=== PATIENT | male | born 1995 | race Caucasian/White ===

== ENCOUNTER → 2021-06-19 08:54 | Outpatient (BNVA) | payer BC, SELFPAY | PROVIDERS: PCP Registered Nurse; Visit Provider Registered Nurse | DX: I10 Essential (primary) hypertension (principal); E78.5 Hyperlipidemia, unspecified | CPT/HCPCS: 80053; 80061; 85025 ==

== ENCOUNTER 2022-01-20 20:00 | Outpatient (CLI) | payer BC, SELFPAY | END 2022-01-20 20:01 | disposition home or self-care (01) | LOC: SLEEP 01-21 06:08 | PROVIDERS: PCP Registered Nurse; Visit Provider Registered Nurse | DX: G47.33 Obstructive sleep apnea (adult) (pediatric) (principal) | CPT/HCPCS: 95810 ==

== ENCOUNTER 2022-02-22 20:00 | Outpatient (CLI) | payer BC, SELFPAY | END 2022-02-22 20:01 | disposition home or self-care (01) | LOC: SLEEP 02-23 05:58 | PROVIDERS: PCP Registered Nurse; Visit Provider Registered Nurse | DX: G47.33 Obstructive sleep apnea (adult) (pediatric) (principal) | CPT/HCPCS: 95811 ==

== ENCOUNTER 2022-08-12 00:39 | Emergency (ER) | payer BC, SELFPAY ==
[2022-08-12 01:00] VITALS: BP 164/124; PULSE 81; RESP 18; TEMP 36.6; O2SAT 97; BMI 42.0
--- NOTE | 2022-08-12 01:09 | XRR_ITS ---
PROCEDURE INFORMATION: Exam: XR Chest Exam date and time: 08/12/2022 2:21 AM Age: 27 years old Clinical indication: Pain; Chest pressure; Patient HX: C/O chest discomfort with hypertension; Additional info: Cp TECHNIQUE: Imaging protocol: Radiologic exam of the chest. Views: 1 view. COMPARISON: No relevant prior studies available. FINDINGS: Lungs: Unremarkable. No consolidation. Pleural spaces: Unremarkable. No pleural effusion. No pneumothorax. Heart/Mediastinum: Unremarkable. No cardiomegaly. Bones/joints: Unremarkable. XR/XR chest 1V portable [id number] IMPRESSION: No acute findings.
--- NOTE | 2022-08-12 01:09 | ECG_ITS ---
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 Measurements Intervals [place] Rate: 68 P: -53 NC: 133 QRS: -15 QRSD: 102 T: 38 QT: 363 QTc: 387 Interpretive Statements SINUS RHYTHM WITH OCCASIONAL SUPRAVENTRICULAR PREMATURE COMPLEXES No previous ECG available for comparison Electronically Signed On 08-12-2022 15:02:03 CENTRAL SCHEDULER by Mane Le M.D. [email or web address]
--- NOTE | 2022-08-12 01:22 | ED_ITS ---
HPI - Chest Pain General: Chief Complaint: Chest Pain Stated Complaint: high B/P Time Seen by Provider: 08/12/22 00:45 Source: patient Mode of arrival: ambulatory Limitations: no limitations History of Present Illness: 27-year-old male who states he has a history of hypertension he states he takes 20 mg lisinopril in the morning he states over the last 2 days he has had some sharp pains like needles in his chest he did notice his blood pressures been running high its been running anywhere to 1 5160 he denies any vomiting denies any pain currently denies any shortness of breath states he feels at his baseline. Associated symptoms: Deny abdominal pain, dyspnea, fever(s), nausea or vomiting Review of Systems Const: Denies: fever(s), chills, body aches or change in appetite Eyes: Denies: blurry vision or eye discomfort ENMT: Denies: throat pain or dental pain Card: Reports: chest pain Resp: Denies: dyspnea GI: Denies: abdominal pain, nausea, vomiting or diarrhea : Denies: dysuria Musc: Denies: neck pain or back pain Skin/Breast: Denies: rash Neuro: Denies: headache(s) Psych: Denies: depression Marcell/Lymph: Denies: easy bruising All/Imm: Denies: urticaria PFSH ED PFSH: Medical History Bronchitis Depression Hypertension URI (upper respiratory infection) Surgical History History of hernia repair Family History Father Hypertension Grandmother Diabetes Social History Smoking and tobacco status: never smoked Alcohol intake: current Alcohol intake frequency: few times a month Adopted: No Caregiver/support person: No Lives independently: No Household members: spouse Marital status: Current occupational status: employed Sexually active: Yes Current gender identity: Male Physical Exam Const: COMMON NORMALS: no acute distress, patient oriented x3 and healthy appearing HENMT: COMMON NORMALS: normocephalic and atraumatic HEAD & SCALP: normocephalic and atraumatic Eye: COMMON NORMALS: Equal, round and reactive pupils present and EOMs intact bilaterally PUPIL: Yes Equal, round and reactive pupils present Neck/C-Spine: COMMON NORMALS: full ROM and supple Chest: COMMONS NORMALS: normal inspection of the chest and normal palpation of entire chest wall Resp: COMMON NORMALS: normal respiratory effort, No retractions, No use of accessory muscles and clear to auscultation bilaterally AUSCULTATION: clear to auscultation bilaterally Cardio: COMMON NORMALS: regular rate, regular rhythm and No murmurs present (Cardio) RATE: regular rate RHYTHM: regular rhythm GI: COMMON NORMALS: Normal to inspection, nondistended, normoactive bowel sounds present, Soft to palpation, non-tender and no masses PALPATION: Yes Soft to palpation Extremity: COMMON NORMALS: normal to inspection and full ROM Neuro: COMMON NORMALS: patient oriented x3, moves all extremities and no focal motor deficits Psych: COMMON NORMALS: mental status grossly normal, Normal thought process present and cooperative THOUGHT PROCESS: Normal thought process present Skin: COMMON NORMALS: no rashes or lesions noted and no wounds GENERAL SKIN EXAM: no rashes or lesions noted Course Vital Signs: Vital signs: Vital Signs Temperature 97.9 F 08/12/22 01:00 Pulse Rate 81 08/12/22 01:00 Respiratory Rate 18 08/12/22 01:00 Blood Pressure 164/124 08/12/22 01:00 Pulse Oximetry 97 08/12/22 01:00 MDM - Chest Pain Medical Decision Making Patient presents with hypertension he is asymptomatic blood work here is all normal we will place him on metoprolol he is stable for discharge he is to fol low-up his PCP and return if worsening he understands agrees to plan. Lab Data : 08/12/22 01:17 08/12/22 01:17 Laboratory Results WBC 9.3 10^3/uL (4.0-10.0) 08/12/22 01:17 RBC 5.86 10^6/uL (4.1-5.3) H 08/12/22 01:17 Hgb 15.6 g/dL (11.7-16.6) 08/12/22 01:17 Hct 48.3 % (42.0-52.0) 08/12/22 01:17 MCV 82.4 fl (80-94) 08/12/22 01:17 MCH 26.6 pg (28.0-34.0) L 08/12/22 01:17 MCHC 32.3 g/dL (30.0-36.0) 08/12/22 01:17 RDW 13.0 % (12.1-15.1) 08/12/22 01:17 Plt Count 208 10^3/cmm (130-400) 08/12/22 01:17 MPV 10.1 fL (7.4-10.4) 08/12/22 01:17 Neut % (Auto) 56.2 % 08/12/22 01:17 Lymph % (Auto) 31.6 % 08/12/22 01:17 [place] % (Auto) 7.9 % 08/12/22 01:17 Eos % (Auto) 3.1 % 08/12/22 01:17 Baso % (Auto) 0.8 % 08/12/22 01:17 Neut # (Auto) 5.20 10^3/uL (1.8-7.7) 08/12/22 01:17 Lymph # (Auto) 2.9 10^3/uL (0.8-4.8) 08/12/22 01:17 [place] # (Auto) 0.7 10^3/uL (0.2-0.9) 08/12/22 01:17 Eos # (Auto) 0.3 10^3/uL (0.0-0.8) 08/12/22 01:17 Baso # (Auto) 0.1 10^3/uL (0.0-0.1) 08/12/22 01:17 Nucleated RBC % (auto) 0 % 08/12/22 01:17 Nucleated RBCs # 0.0 /100WBC 08/12/22 01:17 Sodium 138 mmol/L (136-145) 08/12/22 01:17 Potassium 4.2 mmol/L (3.5-5.1) 08/12/22 01:17 Chloride 99 mmol/L (98-107) 08/12/22 01:17 Carbon Dioxide 29 mmol/L (22-29) 08/12/22 01:17 Anion Gap 14.2 (5-19) 08/12/22 01:17 BUN 11 mg/dL (6-20) 08/12/22 01:17 Creatinine 0.7 mg/dL (0.7-1.2) 08/12/22 01:17 GFR Calculation 133.3 mL/min (90-130) H 08/12/22 01:17 Glucose 105 mg/dL (65-115) 08/12/22 01:17 Calculated Osmolality 286 mOsm/kg (285-295) 08/12/22 01:17 Calcium 9.8 mg/dL (8.5-10.5) 08/12/22 01:17 Total Bilirubin 0.6 mg/dL (0.15-1.2) 08/12/22 01:17 AST 24 U/L (0-40) 08/12/22 01:17 ALT 32 U/L (0-41) 08/12/22 01:17 Alkaline Phosphatase 75 U/L (40-130) 08/12/22 01:17 Troponin T Baseline 10 ng/L (0-15) 08/12/22 01:17 Total Protein 7.6 g/dL (6.6-8.7) 08/12/22 01:17 Albumin 4.8 g/dL (3.5-5.2) 08/12/22 01:17 Globulin 2.8 g/dL (1.3-4.6) 08/12/22 01:17 EKG Data EKG 1: I personally reviewed and interpreted this EKG as follows: EKG interpretation date: 08/12/22 EKG interpretation time: 01:10 Interpretation: nsr hr [address] or t wave abnormalities qrs 102 qtc 380 Discharge Plan Discharge Patient Disposition: Home Clinical Impression: Hypertension Condition: Stable Prescriptions: New metoprolol succinate 25 mg tablet extended release 24 hr 25 mg PO DAILY Qty: 30 0RF No Action ibuprofen 800 mg tablet 800 mg PO BID 7 Days Qty: 14 0RF sertraline [Zoloft] 25 mg tablet 25 mg PO DAILY 90 Days Qty: 90 3RF baclofen 20 mg tablet 20 mg PO DAILY 30 Days Qty: 30 0RF triamcinolone acetonide 0.05 % ointment 1 applic topical BID Qty: 110 0RF fluticasone propionate [Flonase Allergy Relief] 50 mcg/actuation spray,suspension 1 spray intranasal BID Qty: 16 0RF Rx Instructions: administer into each nostril pantoprazole 40 mg tablet,delayed release (DR/EC) 40 mg PO DAILY 30 Days Qty: 30 0RF furosemide [Lasix] 20 mg tablet 20 mg PO DAILY 30 Days Qty: 30 0RF lisinopril 20 mg tablet 20 mg PO DAILY 90 Days Qty: 90 0RF (DME) cpap and supplies See Rx Instructions .Route .MEDSUPPLY Qty: 1 0RF Rx Instructions: As directed updated order due to change in insurance. Discharge Orders: Discharge ED (Routine); Ordered 08/12/22 Ordered By: Robert Milian Referrals: Asaf Yung, [facility] [Primary Care Provider] - 1-3 days Discharge Diet: Advance as tolerated Discharge Activity: Resume usual activity Patient Instructions: Hypertension (ED) Coding Level of Care Code ED Finisher Hand for Nataliag Fwd Exam Comprehensive
[2022-08-12] MEDS: labetalol 5 mg/mL SDV 20mL 10 MG IVP (01:24)
[2022-08-12 01:28] LABS: Basophils # 0.1 10^3/uL (0.0-0.1); Basophils % 0.8 %; Eosinophils # 0.3 10^3/uL (0.0-0.8); Eosinophils % 3.1 %; Hematocrit 48.3 % (42.0-52.0); Hemoglobin 15.6 g/dL (11.7-16.6); Lymphocytes # 2.9 10^3/uL (0.8-4.8); Lymphocytes % 31.6 %; Mean Corpuscular HGB Conc 32.3 g/dL (30.0-36.0); Mean Corpuscular Hemoglobin 26.6 pg (28.0-34.0); Mean Corpuscular Volume 82.4 fl (80-94); Mean Platelet Volume 10.1 fL (7.4-10.4); Monocytes # 0.7 10^3/uL (0.2-0.9); Monocytes % 7.9 %; Neutrophils % 56.2 %; Nucleated Red Blood Cells % 0 %; Platelet Count 208 10^3/cmm (130-400); Red Blood Count 5.86 10^6/uL (4.1-5.3); White Blood Count 9.3 10^3/uL (4.0-10.0)
[2022-08-12 01:47] LABS: Troponin(5th) Baseline 10 ng/L (0-15)
[2022-08-12 01:48] LABS: Alanine Aminotransferase 32 U/L (0-41); Albumin Level 4.8 g/dL (3.5-5.2); Alkaline Phosphatase 75 U/L (40-130); Aspartate Amino Transferase 24 U/L (0-40); Blood Urea Nitrogen 11 mg/dL (6-20); Calcium 9.8 mg/dL (8.5-10.5); Carbon Dioxide 29 mmol/L (22-29); Chloride 99 mmol/L (98-107); Globulin 2.8 g/dL (1.3-4.6); Glomerular Filtration Rate 133.3 mL/min (90-130); Glucose 105 mg/dL (65-115); Osmolality Calculated 286 mOsm/kg (285-295); Sodium 138 mmol/L (136-145); Total Bilirubin 0.6 mg/dL (0.15-1.2); Total Protein 7.6 g/dL (6.6-8.7)
[2022-08-12 01:50] LABS: Anion Gap 14.2 (5-19)
[2022-08-12 01:51] LABS: Potassium 4.2 mmol/L (3.5-5.1)
[2022-08-12 01:55] VITALS: BP 140/98; PULSE 70; RESP 14; O2SAT 96
== END 2022-08-12 02:03 | disposition home or self-care (01) ==
PROVIDERS: Emergency Provider Emergency Medicine; PCP Registered Nurse
DX: I10 Essential (primary) hypertension (principal)
CPT/HCPCS: 71045; 80053; 84484; 85025; 93005; 96374; 99285; J3490

== ENCOUNTER 2022-08-16 06:41 | Outpatient (CLI) | payer BC, SELFPAY ==
--- NOTE | 2022-08-16 07:15 | US_ITS ---
WS: [id number] RIGHT UPPER QUADRANT ULTRASOUND HISTORY: R10.11 - Right upper quadrant pain COMPARISON: None available. Liver: 20.5 cm in length. Moderately enlarged liver with coarse echotexture and hepatic steatosis. No mass or bile duct dilatation. Portal Vein: Limited. Gallbladder: Normally distended gallbladder with no stones or wall thickening. CBD: 0.5 cm Pancreas: Poorly visualized due to body habitus. Right kidney: 11.9 cm in length. Normal size and echogenicity. No hydronephrosis or mass. Aorta and IVC: Unremarkable abdominal aorta and IVC. No ascites. US/US gall bladder [id number] IMPRESSION: 1. Normal gallbladder. 2. Moderate hepatomegaly and hepatic steatosis.
== END 2022-08-16 06:42 | disposition home or self-care (01) ==
LOC: RAD 06:42
PROVIDERS: PCP Registered Nurse; Visit Provider Registered Nurse
DX: R10.11 Right upper quadrant pain (principal); R16.0 Hepatomegaly, not elsewhere classified; K76.0 Fatty (change of) liver, not elsewhere classified
CPT/HCPCS: 76705

== ENCOUNTER 2022-09-10 07:25 | Outpatient (CLI) | payer BC, SELFPAY ==
--- NOTE | 2022-09-10 07:41 | XR_ITS ---
WS: [id number] Left ankle, 3 views, 09/10/2022 Clinical Data: M25.572 - Pain in left ankle and joints of left foot Comparison: None. Findings: No fractures or dislocations are seen. The ankle mortise is normal. The talus and calcaneus are unrem arkable. No soft tissue swelling over the medial or lateral malleolus is seen. There is a small Achilles spur. XR/XR ankle LT min 3V* [id number] Impression: Negative left ankle.
== END 2022-09-10 07:26 | disposition home or self-care (01) ==
LOC: RAD 07:26
PROVIDERS: PCP Registered Nurse; Visit Provider Registered Nurse
DX: M25.572 Pain in left ankle and joints of left foot (principal)
CPT/HCPCS: 73610

== ENCOUNTER → 2022-11-26 08:04 | Outpatient (BNVA) | payer BC, SELFPAY | PROVIDERS: PCP Registered Nurse; Visit Provider Podiatrist Foot & Ankle Surgery | DX: M95.8 Other specified acquired deformities of musculoskeletal system (principal); M77.52 Other enthesopathy of left foot and ankle; M21.41 Flat foot [pes planus] (acquired), right foot; M21.42 Flat foot [pes planus] (acquired), left foot; M25.872 Other specified joint disorders, left ankle and foot | CPT/HCPCS: 73610 ==

== ENCOUNTER 2022-12-20 10:30 | Outpatient (CLI) | payer BC, SELFPAY ==
--- NOTE | 2022-12-20 11:00 | MR_ITS ---
WS: [email or web address] EXAMINATION: MR ankle LT wo con* [id number] ORDER DATE: 12/20/2022 10:59 AM COMPARISON: Radiograph November 26, 2022 HISTORY: Left ankle Osteochondral defect CONTRAST: None. TECHNIQUE: Axial proton density fat sat, axial T1, sagittal proton density, sagittal STIR, coronal T2 fat sat, and coronal T1 sequences performed. After contrast, axial T1 fat sat, coronal T1 fat sat, and sagittal T1 fat sat were performed. FINDINGS: Tiny osteochondral defect along the lateral dome of the talus. No underlying edema. No other osteocho ndral defects. Normal medial and lateral malleolus. No acute fractures. Otherwise normal talar dome. Normal ATF. Achilles tendon is normal in appearance. Normal peroneal tendons. Pes planus. Normal extensor and flexor compartment tendons. Normal plantar aponeurosis. Normal talonavicular articulation. Normal deltoid ligament. Normal cuboid. Normal navicular. Normal cuneiforms. Degenerative arthritis talonavicular and talocalc aneal articulations. MR/MR ankle LT wo con* [id number] IMPRESSION: 1. Tiny osteochondral defect along the lateral dome of the talus. No underlyin g edema. 2. Normal medial and lateral malleolus. No avulsion fractures. 3. Normal peroneal tendons. Normal extensor and flexor compartment tendons. 4. Normal Achilles tendon. 5. Mild degenerative arthritis talonavicular and talocalcaneal articulations. Tiny joint effusion. 6. Normal ATF.
== END 2022-12-20 10:31 | disposition home or self-care (01) ==
LOC: RAD 10:31
PROVIDERS: PCP Registered Nurse; Visit Provider Podiatrist Foot & Ankle Surgery
DX: M95.8 Other specified acquired deformities of musculoskeletal system (principal); M19.072 Primary osteoarthritis, left ankle and foot; M25.472 Effusion, left ankle
CPT/HCPCS: 73721

== ENCOUNTER 2022-12-30 07:21 | Day surgery (SDC) | payer BC, SELFPAY ==
[2022-12-29 15:55] VITALS: BMI 42.8
[2022-12-30] VITALS (13 sets, daily range): BP systolic 121–145; BP diastolic 60–104; PULSE 62–81; RESP 11–21; TEMP 36.3–36.9; O2SAT 93–100
[2022-12-30] MEDS: acetaminophen 1,000 MG/100 ML PIGGYBACK 400 MG IV (07:56)
[2022-12-30] MEDS: gabapentin 300 mg Capsule PO (07:56)
[2022-12-30] MEDS: sodium chloride 0.9% 1,000 ML 30 ML IV (07:57)
--- NOTE | 2022-12-30 08:03 | ANES.PREANE2 ---
Pre-Anesthetic Assessment Height/Weight: Height 1.75 m Weight 131.542 kg Temp Pulse Resp BP Pulse Ox O2 Del Method 98.4 F 78 16 137/99 97 12/30/22 07:26 12/30/22 07:55 12/30/22 07:55 12/30/22 07:55 12/30/22 07:55 12/30/22 07:55 Preop Diagnosis: Left ankle osteochondral defect Operation Date: 12/30/22 09:10 Proposed Procedures p ?Left ankle arthroscopy with OCD repair 84321,M93.272(Not Applicable) - Simba Bagley DPM Familial anesthetic complications: None Was Beta Angélica taken within 24 hours: N/A Was Clonidine taken within 24 hours: N/A Last intake: Intake Last Liquid Date 12/29/22 Last Liquid Time 17:30 Last Solid Date 12/29/22 Last Solid Time 17:30 Social Alcohol (Social) and No tobacco Exam alert, oriented x 3, clear to auscultation bilaterally and regular rate & rhythm Airway Submandibular: within normal limits Cervical ROM: within normal limits Mallampati: Class III Dentition: full History/ROS No significant history except as noted and No significant complaints Pulmonary Sleep Apnea CV/HEM Hypertension None reported Hepatic None reported GI None reported Metabolic Morbid Obesity Musc/skel None reported Neuropsych Anxiety Anesthetic Plan ASA status: 2 Anesthesia: Anesthesia Evaluation, Eval. for regional block (Pop block) and General Risk of > 500 ml blood loss (7ml/kg in children): No Medications/Allergies Home Medications Medication Instructions Recorded Confirmed Last Taken Type sertraline 25 mg tablet (Zoloft) 25 mg PO DAILY 90 days #90 tabs 01/15/22 12/29/22 12/29/22 Rx cpap and supplies #1 ea 06/14/22 12/29/22 Unknown Rx ASO brace #1 ea 11/26/22 12/29/22 Unknown Rx crutches #1 ea 12/22/22 12/29/22 Unknown Rx amlodipine 5 mg tablet 5 mg PO DAILY 30 days #30 tabs 12/23/22 12/29/22 12/29/22 Rx baclofen 20 mg tablet 20 mg PO DAILY PRN muscle relaxer 12/29/22 12/30/22 12/16/22 History meloxicam 15 mg tablet 15 mg PO DAILY 03/12/29/22 12/28/22 History hydrocodone 5 mg-acetaminophen 325 1 tab PO Q6H PRN pain 6 days #24 12/30/22 Unknown Rx mg tablet tabs Allergies Allergy/AdvReac Type Severity Reaction Status Date / Time No Known Allergies Allergy Verified 12/30/22 07:33 Current Medications Generic Name Dose Route Start Last Admin Trade Name Freq PRN Reason Stop Dose Admin Sodium Chloride 1,000 mls @ 30 mls/hr 12/30/22 07:30 12/30/22 07:57 Sodium Chloride 0.9% IV 12/31/22 07:29 30 mls/hr .Q24H ANTHONY Administration PFSH Anesthesia Medical History Bronchitis Depression Hypertension URI (upper respiratory infection) Surgical History History of hernia repair Family History Father Hypertension CAD (coronary artery disease) Heart attack Grandmother Diabetes CAD (coronary artery disease) Grandfather CAD (coronary artery disease) Brother CAD (coronary artery disease) Social History Smoking and tobacco status: never smoked Alcohol intake: current Alcohol intake frequency: few times a month Adopted: No Caregiver/support person: No Lives independently: No Household members: spouse Marital status: Current occupational status: employed Sexually active: Yes Current gender identity: Male Data Anesthesia Cardiac Studies: No Data to Display
--- NOTE | 2022-12-30 08:04 | W.PM.OPSUD ---
Surgery/Procedure H&P Update DATE OF PROCEDURE: December 30, 2022 DATE H&P PERFORMED: 12/22/22 CHANGES TO PREVIOUS DOCUMENTATION: No changes PREOP DIAGNOSIS: Left ankle osteochondral defect PLANNED PROCEDURE: Operation Date: 12/30/22 09:10 Proposed Procedures p ?Left ankle arthroscopy with OCD repair 67318,M93.272(Not Applicable) - Simba Bagley DPM
[2022-12-30] MEDS: ceFAZolin 2,000 MG in sodium chloride 0.9% (plus) 50 ML 100 MG IV (10:23)
[2022-12-30] MEDS: ceFAZolin 1,000 mg SDV 1000 MG IVP (11:15)
--- NOTE | 2022-12-30 11:26 | ANES.PROC ---
Anesthesia Procedures Procedure/Date: 12/30/22 Nerve Block ^: Nerve Block 1: Main Anesthesia: general anesthesia Time Out Performed: Yes Consent: requested by attending/covering physician, from patient, risks and benefits reviewed and patient agrees to proceed Nerve block location: popliteal (left) Anesthesia monitors applied: pulse oximetry, EKG, BP cuff and oxygen Nerve block position: supine Anesthetic Used: ropivicaine 0.5% Amount of anesthesia used (mL): 30 Ultrasound used to: recognize landmarks Nerve Stimulator Used?: No Interscalene/Femoral BLK: 4 stimuplex 21 g needle used for position and inplane approach Injection: neg aspiration of heme Patient Tolerated Procedure: well Complications: none
--- NOTE | 2022-12-30 13:06 | PC.NURSE ---
Awake. Airway removed
[2022-12-30] MEDS: HYDROcodone-acetaminophen 5-325 mg Tablet 1 TAB PO (13:39)
--- NOTE | 2022-12-30 15:59 | ANE.PACU2 ---
Inpatient post-anesthesia follow up: Airway intact: Yes Vital signs: Temperature 97.8 F Pulse Rate 81 Respiratory Rate 16 Blood Pressure 138/90 Pulse Oximetry 95 Oxygen Delivery Me thod Room Air Oxygen Flow Rate 8 Fraction of Inspir ed Oxygen Hydration adequate: Yes Nausea and vomiting: No Pain level: 1 Mental status: Baseline
--- NOTE | 2022-12-30 19:10 | PM.OP ---
Operative Report Date of procedure: December Pre-op diagnosis: Preop Diagnosis Left ankle osteochondral defect Post-op diagnosis: Same Post-op findings: Left ankle lateral shoulder osteochondral defect Procedure done: Left ankle arthroscopy with osteochondral defect debridement CPT 59040 Surgeon: Dr. Simba Bagley, D.P.M. Estimated blood loss: Less than 10 cc Tourniquet not inflated Complications: None Brief History: Patient is a 27-year-old male that has a history of left ankle osteochondral defect. The patient has had the aforementioned chief complaint for some time. Conservative treatment measures have been attempted and the patient has opted for surgical intervention at this time. A lengthy discussion regarding the procedure, including risks and complications has been had with the patient and is noted in the recent clinic note. Written and verbal consent have been obtained. All patient questions have been answered to the patient?s satisfaction. No written or verbal guarantees have been given or implied. The patient has been NPO since midnight. The history has been reviewed and the history and physical is current. The signed consent was confirmed and placed in the patient chart. Patient imaging has been reviewed and is consistent with the diagnosis. Under mild sedation, the patient was brought into the operating room and placed on the table in the supine position. IV antibiotics were given by the anesthesia team as preoperative surgical prophylaxis. General sedation was then performed by the anesthesiateam. A pneumatic tourniquet was then placed about the left thigh. The operative extremity was then prepped and draped in the usual fashion. After prep, the following procedure was then performed. Attention was directed to the anterior left ankle. The anteromedial portal was established using a #11 blade just medial to the tibialis anterior. This was after the ankle joint was insufflated with 20 cc of sterile saline. Next, mosquito hemostat was used to bluntly dissect down to the level of the ankle joint capsule which was pierced. The trocar and cannula were then inserted into the anteromedial portal the trocar was removed and the camera was inserted into the cannula. The ankle joint was visualized and there was noted to be significant synovitis within the ankle joint especially in the region of the lateral ankle ankle gutter. Fibrocartilage was noted on the dorsal lateral shoulder of the talar body. The anterolateral portal was then established using a #11 blade before arthroscopic shaver was inserted. The overlying fibrocartilage was debrided using the arthroscopic shaver. A probe was inserted into the anterolateral portal and the overlying cartilage of the lateral shoulder was noted to be Frain and loosely adhered with underlying osteochondral defect. Using a curette this fibrocartilage was removed from the underlying defect. It was grasped with a grasper and removed from the ankle joint. Shaver was then used to further saucerize the edges. A curette was used to debride the osteochondral defect of the lateral shoulder of the talus. The ankle joint was otherwise noted to be healthy in appearance. The trocar and cannula as well as arthroscopic shaver were removed from the portals before they were closed with 4-0 nylon in horizontal mattress fashion. Incisions were dressed with Xeroform, 4 x 4 gauze, Kerlix and the patient was placed in a well-padded below the knee posterior splint. The patient tolerated the procedure and anesthesia well and without complication. The patient was transported from the operating room to the recovery room with vital signs stable and vascular status intact to all digits of the left foot. The patient was given both written and verbal instructions to remain nonweightbearing to the operative extremity, to keep dressings/splint clean, dry and intact and to take pain medication as directed. The patient will follow-up in the outpatient setting at their scheduled appointment. The patient was discharged with my personal number and was instructed to call if any questions or issues should arise. They were discharged home once anesthesia criteria was met.
== END 2022-12-30 13:57 | disposition home or self-care (01) ==
PROVIDERS: PCP Registered Nurse; Visit Provider Podiatrist Foot & Ankle Surgery
PROC: (CPT 29891; principal; 2022-12-30 09:00)
DX: M21.962 Unspecified acquired deformity of left lower leg (principal); G47.30 Sleep apnea, unspecified; I10 Essential (primary) hypertension; E66.01 Morbid (severe) obesity due to excess calories; Z68.41 Body mass index [BMI] 40.0-44.9, adult; F41.9 Anxiety disorder, unspecified
CPT/HCPCS: 29891; J0131; J0330; J0690; J1100; J1885; J2250; J2405; J2704; J2795; J3010; J7030

== ENCOUNTER 2023-01-13 14:46 | Outpatient (CLI) | payer BC, SELFPAY | END 2023-01-13 14:47 | disposition home or self-care (01) | LOC: SPT 14:47 | PROVIDERS: PCP Registered Nurse; Visit Provider Podiatrist Foot & Ankle Surgery | DX: Z46.89 Encounter for fitting and adjustment of other specified devices (principal); M95.8 Other specified acquired deformities of musculoskeletal system | CPT/HCPCS: 97760; L4361 ==

== ENCOUNTER → 2023-01-28 07:58 | Outpatient (BNVA) | payer BC, SELFPAY | PROVIDERS: PCP Registered Nurse; Visit Provider Podiatrist Foot & Ankle Surgery | DX: M25.572 Pain in left ankle and joints of left foot (principal); M95.8 Other specified acquired deformities of musculoskeletal system | CPT/HCPCS: 73610 ==

== ENCOUNTER 2023-02-15 09:58 | Outpatient (RCR) | payer BC, SELFPAY | END 2023-03-02 23:59 | disposition home or self-care (01) | LOC: SPT 09:58 | PROVIDERS: Visit Provider Podiatrist Foot & Ankle Surgery | DX: M93.272 Osteochondritis dissecans, left ankle and joints of left foot (principal) | CPT/HCPCS: 97110; 97161; 97530 ==

== ENCOUNTER 2023-03-03 06:00 | Outpatient (RCR) | payer BC, SELFPAY | END 2023-04-01 23:59 | disposition home or self-care (01) | LOC: SPT 06:00 | PROVIDERS: Visit Provider Podiatrist Foot & Ankle Surgery | DX: M93.272 Osteochondritis dissecans, left ankle and joints of left foot (principal) | CPT/HCPCS: 97110; 97530 ==

== ENCOUNTER 2023-04-02 06:00 | Outpatient (RCR) | payer BC, SELFPAY | END 2023-05-02 23:59 | disposition home or self-care (01) | LOC: SPT 06:00 | PROVIDERS: Visit Provider Podiatrist Foot & Ankle Surgery | DX: M93.272 Osteochondritis dissecans, left ankle and joints of left foot (principal); M25.572 Pain in left ankle and joints of left foot | CPT/HCPCS: 97110; 97530 ==

== ENCOUNTER 2023-05-03 06:00 | Outpatient (RCR) | payer BC, SELFPAY | END 2023-06-02 23:59 | disposition home or self-care (01) | LOC: SPT 06:00 | PROVIDERS: Visit Provider Podiatrist Foot & Ankle Surgery | DX: M93.272 Osteochondritis dissecans, left ankle and joints of left foot (principal) | CPT/HCPCS: 97110; 97530 ==

== ENCOUNTER → 2023-06-23 08:43 | Outpatient (BNVA) | payer BC, SELFPAY | PROVIDERS: PCP Registered Nurse; Visit Provider Registered Nurse | DX: I10 Essential (primary) hypertension (principal); L30.9 Dermatitis, unspecified | CPT/HCPCS: 80053; 83036; 85025 ==

== ENCOUNTER → 2023-09-21 08:34 | Outpatient (BNVA) | payer BC, SELFPAY | PROVIDERS: PCP Registered Nurse; Visit Provider Registered Nurse | DX: E11.9 Type 2 diabetes mellitus without complications (principal) | CPT/HCPCS: 83036 ==

== ENCOUNTER → 2024-03-15 08:25 | Outpatient (BNVA) | payer OTHER, SELFPAY | PROVIDERS: PCP Registered Nurse; Visit Provider Psychiatry & Neurology Neurology | DX: E11.9 Type 2 diabetes mellitus without complications (principal); I10 Essential (primary) hypertension; F32.9 Major depressive disorder, single episode, unspecified; G47.33 Obstructive sleep apnea (adult) (pediatric); K21.9 Gastro-esophageal reflux disease without esophagitis; R25.9 Unspecified abnormal involuntary movements | CPT/HCPCS: 82306; 82607; 82746; 83735; 83921; 84439; 84443; 84481; 84591; 86376 ==

== ENCOUNTER → 2024-03-27 16:14 | Outpatient (BNVA) | payer OTHER, SELFPAY | PROVIDERS: PCP Registered Nurse; Visit Provider Registered Nurse | DX: E11.9 Type 2 diabetes mellitus without complications (principal) | CPT/HCPCS: 80053; 80061; 83036 ==

== ENCOUNTER → 2024-05-15 08:55 | Outpatient (BNVA) | payer OTHER, SELFPAY | PROVIDERS: PCP Registered Nurse; Visit Provider Student in an Organized Health Care Education/Training Program | DX: G56.03 Carpal tunnel syndrome, bilateral upper limbs (principal) | CPT/HCPCS: 73110 ==

== ENCOUNTER 2024-06-13 05:54 | Day surgery (SDC) | payer OTHER, SELFPAY ==
[2024-06-13] MEDS: acetaminophen 1,000 MG/100 ML PIGGYBACK 400 MG IV (06:16)
[2024-06-13] MEDS: sodium chloride 0.9% 1,000 ML 30 ML IV (06:16)
[2024-06-13 06:24] VITALS: BMI 41.3
[2024-06-13 06:29] VITALS: BP 161/95; PULSE 70; RESP 18; TEMP 36.8; O2SAT 98
[2024-06-13] MEDS: scopolamine 1.5 Patch 1 PATCH TRANSDERMA (06:30)
[2024-06-13] MEDS: ketorolac 30 mg/mL INJ IVP (06:30)
--- NOTE | 2024-06-13 06:54 | ANES.PREANE2 ---
Pre-Anesthetic Assessment Height/Weight: Height 1.75 m Weight 127.006 kg Temp Pulse Resp BP Pulse Ox O2 Del Method 98.2 F 70 18 161/95 98 Room Air 06/13/24 06:06/13/24 06:06/13/24 06:06/13/24 06:06/13/24 06:06/13/24 06:29 Operation Date: 06/13/24 07:15 Proposed Procedures p Carpal Tunnel Release(Right) - Garcia Colquitt, DO Familial anesthetic complications: None Was Beta Angélica taken within 24 hours: N/A Was Clonidine taken within 24 hours: N/A Last intake: Intake Last Liquid Date 06/12/24 Last Liquid Time 23:00 Last Solid Date 06/12/24 Last Solid Time 23:00 Social No alcohol and No tobacco Exam alert, oriented x 3, clear to auscultation bilaterally and regular rate & rhythm Airway Mallampati: Class IV Dentition: full Comments: Comments: large neck circumference, excess submandibular tissue, large tongue Pulmonary Sleep Apnea CV/HEM Hypertension GI Gastroesophageal Reflux Disease Metabolic Diabetes Mellitus and Morbid Obesity Anesthetic Plan ASA status: 3 Anesthesia: MAC Risk of > 500 ml blood loss (7ml/kg in children): No Medications/Allergies Home Medications Medication Instructions Recorded Confirmed Last Taken Type cpap and supplies #1 ea 06/14/22 05/15/24 Unknown Rx ASO brace #1 ea 11/26/22 05/15/24 Unknown Rx crutches #1 ea 12/22/22 05/15/24 Unknown Rx baclofen 20 mg tablet 20 mg PO DAILY PRN muscle relaxer 12/29/22 06/12/24 06/11/24 History cpap mask #1 ea 05/16/23 05/15/24 Unknown Rx blood sugar diagnostic (Accu-Chek #100 ea 07/01/23 05/15/24 Unknown Rx Guide test strips) blood-glucose meter (Accu-Chek #1 ea 07/01/23 05/15/24 Unknown Rx Guide Glucose Meter) lancets (Accu-Chek Softclix #100 ea 07/01/23 05/15/24 Unknown Rx Lancets) citalopram 20 mg tablet 20 mg PO DAILY 90 days #90 tabs 12/22/23 06/12/24 06/12/24 Rx cholecalciferol (vitamin D3) 1,250 50,000 unit PO ONCE #14 caps 04/20/24 06/12/24 06/08/24 Rx mcg (50,000 unit) capsule semaglutide 0.25 mg or 0.5 mg (2 See Rx Instructions .Route 05/03/24 06/12/24 06/01/24 Rx mg/3 mL) subcutaneous pen injector .COMPLEX #3 mL (Ozempic) lidocaine 5 % topical patch 1 patch topical DAILY #30 ea 05/24/24 06/13/24 Unknown Rx amlodipine 10 mg tablet 10 mg PO DAILY 06/12/24 06/12/24 06/12/24 History telmisartan 40 mg tablet 40 mg PO DAILY 06/12/24 06/12/24 06/12/24 History Allergies Allergy/AdvReac Type Severity Reaction Status Date / Time No Known Allergies Allergy Verified 06/13/24 06:08 Current Medications Generic Name Dose Route Start Last Admin Trade Name Freq PRN Reason Stop Dose Admin Sodium Chloride 1,000 mls @ 30 mls/hr 06/13/24 06:00 06/13/24 06:16 Sodium Chloride 0.9% IV 06/14/24 05:59 30 mls/hr .Q24H ANTHONY Administration PFSH Anesthesia Medical History Bronchitis URI (upper respiratory infection) Depression Hypertension Surgical History History of ankle surgery left History of hernia repair Family History Father Hypertension CAD (coronary artery disease) Heart attack Grandmother Diabetes CAD (coronary artery disease) Grandfather CAD (coronary artery disease) Brother CAD (coronary artery disease) Social History Smoking and tobacco/nicotine status: never used tobacco/nicotine Alcohol intake: current Alcohol intake frequency: few times a month Substance/Drug Use: never Adopted: No Caregiver/support person: No Lives independently: No Household members: spouse Marital status: Current occupational status: employed Sexually active: Yes Do you think of yourself as: Straight/Heterosexual Current gender identity: Male Data Anesthesia Cardiac Studies: No Data to Display
--- NOTE | 2024-06-13 07:26 | P.HP_ITS ---
Same Day Surgery H&P Indication for Procedure/HPI DATE OF PROCEDURE: June 13, 2024 CHIEF COMPLAINT/INDICATIONFOR SURGICAL PROCEDURE: Right carpal tunnel syndrome PREOP DIAGNOSIS: Right carpal tunnel syndrome PLANNED PROCEDURE: Operation Date: 06/13/24 07:15 Proposed Procedures p Carpal Tunnel Release(Right) - Garcia Stacy DO Medications/Allergies* Home Medications Medication Instructions Recorded Confirmed Type baclofen 20 mg tablet 20 mg PO DAILY PRN muscle relaxer 12/29/22 06/12/24 History amlodipine 10 mg tablet 10 mg PO DAILY 06/12/24 06/12/24 History telmisartan 40 mg tablet 40 mg PO DAILY 06/12/24 06/12/24 History Allergies/Adverse Reactions Allergy/AdvReac Type Severity Reaction Status Date / Time No Known Allergies Allergy Verified 06/13/24 06:08 Current Medications: Generic Name Dose Route Start Last Admin Trade Name Freq PRN Reason Stop Dose Admin Sodium Chloride 1,000 mls @ 30 mls/hr 06/13/24 06:00 06/13/24 06:16 Sodium Chloride 0.9% IV 06/14/24 05:59 30 mls/hr .Q24H ANTHONY Administration Pertinent History/Comorbid Conditions* Medical History (Updated 03/28/24 @ 08:16 by JOSE MANUEL Skaggs) Bronchitis URI (upper respiratory infection) Depression Hypertension Surgical History (Updated 01/13/23 @ 13:28 by iSmba Bagley DPM) History of ankle surgery left History of hernia repair Family History (Updated 08/13/22 @ 09:27 by Sera Skelton LPN) Diabetes Grandmother CAD (coronary artery disease) Father Grandmother Grandfather Brother Heart attack Father Hypertension Father Social History Smoking and tobacco/nicotine status: never used tobacco/nicotine Alcohol intake: current Alcohol intake frequency: few times a month Substance/Drug Use: never Adopted: No Caregiver/support person: No Lives independently: No Household members: spouse Marital status: Current occupational status: employed Sexually active: Yes Do you think of yourself as: Straight/Heterosexual Current gender identity: Male Pertinent Exam Findings alert, oriented x 3, operative site marked and procedure specific exam findings Please refer to detailed orthopedic examination on 05/10/2024 listed below: right upper extremity: Normal C-spine ROM? No pain. Negative Spurling's Negative Tinel's @ shoulder. Normal ROM Normal ROM elbow. Negative Tinel's @ elbow, bilaterally Positive median compression test. Positive Tinel's, Positive Phalen's Subtle thenar weakness, no atrophy noted Negative cmc grind test Tender to palpation to lateral epicondyle Pain with resisted wrist extension Recommendations Surgery/Procedure today Other Plans: Plan to proceed to the OR today for right carpal tunnel release. Patient understands the ins and outs procedure the risk benefits complication alte rnatives of surgery and through shared decision making lacks proceed with surgical intervention. All questions answered at this time. Coding Level of Care Code Acute Code for [facility] Freya
[2024-06-13] MEDS: ceFAZolin 2,000 MG in sodium chloride 0.9% (plus) 50 ML 100 MG IV (07:30)
[2024-06-13] MEDS: lidocaine-epi 1% PF 1:200,000 30 mL SDV INJECTION (07:40)
[2024-06-13] MEDS: ROPivacaine 0.5% SDV 30 mL 150 MG INJECTION (07:40)
--- NOTE | 2024-06-13 08:03 | W.PM.BPON ---
Date of Procedure: 06/13/2024 Surgeon: Garcia Stacy DO Gas Engineer(s): Bassem Stacy PA-C Procedure(s) performed: Right carpal tunnel release Findings of the procedure(s): Patient found to have right carpal tunnel syndrome underwent procedure as planned without issues or complications Estimated blood loss: 2 mL Specimen(s) removed: None Post-operative diagnosis: Right carpal tunnel syndrome
--- NOTE | 2024-06-13 08:04 | P.OP_ITS ---
Operative Report Date of procedure: June 13, 2024 Surgeon: Garcia Stacy DO Gang Punch Operator: Bassem Stacy PA-C: PA was necessary for assistance in this case with hand positioning to execute the procedure, retraction and protection of neurovascular structures as well as to assist with wound closure and dressing application. Procedure: Preop Diagnosis: Right Carpal Tunnel Syndrome Post-op diagnosis: Same Procedure done: 1. Right carpal tunnel release Surgeon: Garcia Stacy DO Anesthesia: MAC (Local) Estimated blood loss: 2 mL Tourniquet time 7 minutes IV fluids: See anesthesia record Complications: None Findings: See operative report narrative Condition: stable Disposition: same day Brief History: Patient is a pleasant 28 year-old male with right carpal tunnel syndrome. Patient has been worked up in the outpatient setting findings and physical examination consistent with this. Patient nerve conduction studies consistent with carpal tunnel syndrome. We detailed out patient's risk benefits complication alternatives with surgical and nonsurgical treatment options. Through shared decision making, patient agrees to proceed with surgical intervention of the right carpal tunnel release . Patient understands and agrees with current plan. All questions answered. Procedure: Patient seen and evaluated in the preoperative holding area. Consent was reviewed and signed with patient. Correct extremity was marked. Patient was seen evaluated by the anesthesia department once cleared for surgery was brought back to the operative suite. Patient was kept on [facility] in supine position all bony prominences were well-padded patient properly secured to the bed. Right upper extremity was then placed onto an armboard. A nonsterile tourniquet was applied to the RIght upper arm. Patient underwent anesthesia per the anesthesia department. Patient's Right upper extremity was then prepped and draped in standard orthopedic fashion. Final timeout performed. Patient received appropriate preoperative antibiotics. Under sterile aseptic technique patient received local anesthesia over the preplanned carpal tunnel incision site. Esmarch was used to exsanguinate the Right upper extremity and tourniquet was insufflated to 250 mmHg. A standard mini open Right carpal tunnel incision was made. Starting distally at Rooney's cardinal line in line with the fourth ray extending proximally distal to the wrist crease centered over the carpal tunnel. Sharp scalpel incision was made through skin and subcutaneous tissue. Self-retaining re tractor was placed and the palmar fascia was identified. This was then split longitudinally and direct visualization of the transverse carpal ligament was then made. I then utilizing scalpel feathered through the transverse carpal ligament until I entered the floor of the transverse carpal tunnel ligament into the carpal tunnel. Next I switched to dissection scissors and completed my release of the transverse carpal ligament distally with care to protect the recurrent motor branch. I completely released into the palmar fat and until no entrapment was noted distally. Care was made to protect the superficial palmar arch during my distal dissection. Next I utilized a nasal speculum placed on top of the transverse carpal ligament and utilize this to retract the subcutaneous fat and tissue and under direct loupe magnification was able to identify the transverse carpal ligament. Next I then protected the contents of the carpal tunnel and subsequently utilizing dissection scissors under loupe magnification completely released the transverse carpal ligament proximally into the antebrachial fascia. Care was made to protect the palmar cutaneous branch by keeping my scissors curved ulnarly. Once completely released, I then placed my Bliss and had appropriate decompression of the carpal tunnel proximally as well as distally. I then inspected the contents of the carpal tunnel which showed an hourglass shape of the median nerve showing its compression. No masses were noted. Tendons appeared healthy. Wound was then thoroughly irrigated. Tourniquet deflated. Hemostasis satisfactory with bipolar electrocautery. I then closed the incision with interrupted nylon stitches. Xeroform 4 x 4's and a bulky soft dressing was applied. Patient was then awakened from anesthesia and taken to PACU in stable condition. Patient tolerated procedure without complications. Disposition: Patient taken to PACU in stable condition recovering well. Dressing clean dry and intact. Patient will receive appropriate discharge instructions as well as pain medication postoperatively. Patient to follow-up with me in the office in 2 weeks. They understand they may be weightbearing as tolerated to the right hand. Patient should keep incision clean dry and intact. Patient understands if any questions or concerns may contact the office.
[2024-06-13 08:10] VITALS: BP 128/94; PULSE 67; RESP 16; TEMP 36.3; O2SAT 98
[2024-06-13 08:15] VITALS: BP 138/69; PULSE 63; RESP 16; O2SAT 97
[2024-06-13 08:20] VITALS: BP 136/87; PULSE 66; RESP 16; O2SAT 97
[2024-06-13 08:25] VITALS: BP 141/72; PULSE 56; RESP 16; TEMP 36.2; O2SAT 97
[2024-06-13 08:30] VITALS: BP 161/95; PULSE 63; RESP 18; O2SAT 97
--- NOTE | 2024-06-13 09:05 | ANE.PACU2 ---
Inpatient post-anesthesia follow up: Airway intact: Yes Vital signs: Temperature 97.2 F Pulse Rate 63 Respiratory Rate 18 Blood Pressure 161/95 Pulse Oximetry 97 Oxygen Delivery Me thod Room Air Oxygen Flow Rate Fraction of Inspir ed Oxygen Hydration adequate: Yes Nausea and vomiting: No Pain level: 1 Mental status: Baseline
== END 2024-06-13 09:03 | disposition home or self-care (01) ==
PROVIDERS: PCP Registered Nurse; Visit Provider Student in an Organized Health Care Education/Training Program
PROC: (CPT 64721; principal; 2024-06-13 07:15)
DX: G56.01 Carpal tunnel syndrome, right upper limb (principal)
CPT/HCPCS: 64721; J0131; J0690; J1885; J2250; J2704; J2795; J3010; J7030

== ENCOUNTER → 2024-12-14 08:29 | Outpatient (BNVA) | payer OTHER, SELFPAY | PROVIDERS: PCP Registered Nurse; Visit Provider Registered Nurse | DX: E11.9 Type 2 diabetes mellitus without complications (principal) | CPT/HCPCS: 80053; 80061; 83036; 85025 ==

== ENCOUNTER → 2025-01-08 09:48 | Outpatient (BNVA) | payer OTHER, SELFPAY | PROVIDERS: PCP Registered Nurse; Visit Provider Podiatrist Foot & Ankle Surgery | DX: M25.572 Pain in left ankle and joints of left foot (principal); M25.571 Pain in right ankle and joints of right foot; E11.9 Type 2 diabetes mellitus without complications | CPT/HCPCS: 73610 ==

== ENCOUNTER → 2025-03-11 16:44 | Outpatient (BNVA) | payer OTHER, SELFPAY | PROVIDERS: PCP Registered Nurse; Visit Provider Psychiatry & Neurology Neurology | DX: R25.9 Unspecified abnormal involuntary movements (principal) | CPT/HCPCS: 36415; 82306; 82390; 82525 ==

== ENCOUNTER → 2025-06-14 08:11 | Outpatient (BNVA) | payer OTHER, SELFPAY | PROVIDERS: PCP Registered Nurse; Visit Provider Registered Nurse | DX: E11.9 Type 2 diabetes mellitus without complications (principal) | CPT/HCPCS: 83036 ==